=== PATIENT | female | born 1995 | race Caucasian/White ===

== ENCOUNTER 2017-04-28 16:47 | Emergency (ER) | payer MEDICAID, OTHER ==
[2017-04-28] MEDS ORDERED: Lactated Ringer's 1,000 ML IV ONE (17:32)
[2017-04-28 17:57] LABS: URINE BACTERIA RARE (<OCC); URINE BILIRUBIN NEGATIVE (NEGATIVE); URINE BLOOD NEGATIVE (NEGATIVE); URINE COLOR Yellow (YELLOW); URINE GLUCOSE (UA) NORMAL (Normal); URINE KETONE NEGATIVE (NEGATIVE); URINE LEUKOCYTE ESTERASE NEG Leu/uL (Negative); URINE PROTEIN NEGATIVE (NEGATIVE); URINE UROBILINOGEN NORMAL mg/dL (0.2-1.0); WBC URINE 1 /hpf (0-5)
--- NOTE | 2017-04-28 22:17 | OBHP ---
Datetime: 04/28/2017 17:39 IP Adm Impression: , intrauterine IP Chief Complaint Other: Abdominal tightness IP Admit Plan: Discharge home Admit Comment, IP Provider: Patient is a 22 year old at 25w3d OPAL 08/08/16 by LMP was sent to L+D by OBGYN for abdominal tightness that started last night. Patient states that pain is constant. Denies any recent trauma or intecourse. Endorses +FM, denies VB, LOF. Pt rebecca any bowel ro bladder complaints. Patient is a private of Dr Siu. Issues: Hx of delivery Cerclage placed on 03/11/17 - was previously on progesterone OB Hx: 1. EAB 2. EAB 3. 2013 at 35 weeks, male infant, no complications 4. 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 Discussed with Dr Siu, patient clear for discharge home. la bor precautions given. Patient to follow up with the office within 1 week. Nataliia Ahn DO PGY-1 agree with above pt seen and examiend with residnet cleared for d/c as per pMD has follow up 1 week FHR - Baseline A Provider: 150 Contraction Comments Provider: none Comments, ACOG Physical Exam: VSS Gen: AAOx3 CV: RRR Lungs: CTA B/L Abd: Soft, gravid Ext: No clubbing, cyanosis, edema; no calf tenderness SVE: closed/thick/high; cerclage not on tension EGA AdmitDate IP: 25.3 Vital Signs Provider: Reviewed; Within Normal Limits IP Chief Complaint: Other NICHD Variability Prov Fetus A: Moderate 6-25bpm NICHD Accel Fetus A IP Provider: 10X10 NICHD Decel Fetus A IP Provider: None Dilatation, Provider: 0
[2017-04-28 23:20] VITALS: BP 114/48; PULSE 97
== END 2017-04-28 19:18 | disposition home or self-care (01) ==
LOC: C.EROB 16:47
DX: O26.892 Other specified pregnancy related conditions, second trimester (principal); Z3A.25 25 weeks gestation of pregnancy; R10.9 Unspecified abdominal pain
CPT/HCPCS: 81001; 99283; J7120

== ENCOUNTER 2017-05-20 16:39 | Emergency (ER) | payer OTHER ==
--- NOTE | 2017-05-20 18:54 | US ---
PROCEDURE: Biophysical profile HISTORY: c/o LOF COMPARISON: None TECHNIQUE: Standard protocol for this study/examination. FINDINGS: Cephalic presentation. Posterior and fundal Placenta. No evidence of abruption or previa Gestational age derived from LMP 28 weeks 4 days. OPAL 08/08/2017. Gestational age derived from the following biometric parameters 28 weeks 5 days . Biparietal diameter 7.2 cm Head [id number] cm Abdominal circumference 24.5 cm Femur length 5.4 cm Estimated weight 1274 g Calculated cardiac rate 155 beats per min. Closed cervix measuring 3.39 cm FINDINGS: Biophysical profile score 8/8 Based on the followin. breathing movements: 2/2 2. Gross body movement: 2/2 3. tone: 2/2 4. Qualitative amniotic fluid index: 2/2 Amniotic fluid index 14.85 IMPRESSION: Biophysical profile score 8/8. Single live intrauterine gestation 28 weeks 5 days. OPAL based on biometry 08/07/2017.
[2017-05-20 22:51] VITALS: BP 110/58; PULSE 100; TEMP 98.3
== END 2017-05-20 18:43 | disposition home or self-care (01) ==
LOC: C.EROB 16:39
DX: O26.93 Pregnancy related conditions, unspecified, third trimester (principal); Z3A.28 28 weeks gestation of pregnancy

== ENCOUNTER 2017-06-30 14:20 | Emergency (ER) | payer OTHER ==
[2017-06-30] MEDS ORDERED: Lactated Ringer's 1,000 ML IV ONE (15:42)
[2017-06-30 16:15] LABS: SQUAMOUS EPITHIAL < 1 /hpf (0-5); URINE BILIRUBIN NEGATIVE (NEGATIVE); URINE BLOOD NEGATIVE (NEGATIVE); URINE CLARITY Clear (Clear); URINE COLOR Yellow (YELLOW); URINE GLUCOSE (UA) NORMAL (Normal); URINE LEUKOCYTE ESTERASE NEG Leu/uL (Negative); URINE NITRATE NEGATIVE (NEGATIVE); URINE PROTEIN NEGATIVE (NEGATIVE); URINE UROBILINOGEN NORMAL mg/dL (0.2-1.0)
[2017-06-30 21:00] VITALS: BP 127/76; PULSE 108
--- NOTE | 2017-07-01 07:56 | OBHP ---
Datetime: 06/30/2017 16:38 IP Adm Impression: , intrauterine IP Chief Complaint Other: Abdominal pain IP Admit Plan: Discharge home Admit Comment, IP Provider: Patient is a 22 year old at 34w3d OPAL 08/08/17 by LMP 11/01/16 pre sents to L+D for abdominal pressure that started last night. Patient states that the pain was so bad that she couldnt move. No inciting events. Pain radiates to her pelvic area. States that the pain slick t away but came back this morning. Pain scale was 9/10. Abdominal pressure is described as "belly tig htening" and she feels like her "cerclage is ripping". Endorses +FM, denies CTX, LOF, VB. Patient see s Dr Siu for care. [place]: Hx of delivery - currently has a cerclage placed 02/2017 at [facility] OB Hx: 1. 2012 TOP 2. 2013 at 35 weeks, male infant, 5lbs 11oz, no complications 3. 2013 or 2014 TOP 4. 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 I agree with the above as documented. OB Addendum: U/A within normal limits, patient feeling better. Pain scale 3/10. Will discharge pat ient home. labor precautions given. Prescription for Flagyl 500mg PO BID also given (presumpt mirian bacterial vaginitis). Patient to follow up with Dr Siu as scheduled previously. FHR - Baseline A Provider: 140 Contraction Comments Provider: occasional Comments, ACOG Physical Exam: VSS Gen: AAOx3 CV: RRR Lungs: CTA B/L Abd: Soft, gravid Ext: No clubbing, cyanosis, edema SSE: Cerclage intact, no bleeding, milky white vaginal discharge noted EGA AdmitDate IP: 34.3 Vital Signs Provider: Reviewed IP Chief Complaint: Other NICHD Variability Prov Fetus A: Moderate 6-25bpm NICHD Accel Fetus A IP Provider: 15X15 FHR Category Provider Fetus A: Category I NICHD Decel Fetus A IP Provider: None Dilatation, Provider: closed Datetime: 05/20/2017 17:22 Pelvic Type - PN: Adequate Extremities - PN: Normal Abdomen - PN: Normal Back - PN: Normal Breast - PN: Normal Lungs - PN: Normal Heart - PN: Normal Thyroid - PN: Normal Neurologic - PN: Normal HEENT - PN: Normal General - PN: Normal Pool Provider: Negative Nitrazine Provider: Negative Genitourinary Exam: Normal DTRs - PN: Normal
== END 2017-06-30 16:59 | disposition home or self-care (01) ==
LOC: C.EROB 14:20
DX: O26.893 Other specified pregnancy related conditions, third trimester (principal); R10.9 Unspecified abdominal pain; Z3A.34 34 weeks gestation of pregnancy
CPT/HCPCS: 81001; 99283; J7120

== ENCOUNTER 2017-07-18 16:26 | Inpatient (IN) | payer OTHER ==
--- NOTE | 2017-07-18 19:25 | OBHP ---
Datetime: 07/18/2017 17:20 IP Adm Impression: Term, intrauterine IP Chief Complaint Other: cerclage IP Adm Impression Other: threatened labor Admit Comment, IP Provider: CC: Cerclage Removal 23 year old female presents for cerclage removal. She complains of right burning foot pain on the plantar aspect of foot. She also complains of dyspnea on exertion and increased urinary frequenc y. She also complains of mild non-foul smelling vaginal discharge. ROS POSTIVES: Right Foot Pain (Plantar Surface), increased urinary frequency. NEGATIVES: Fevers, chills, chest pain, SOB, abdominal pain, nausea, vomiting, diarrhea, constipat ion, hematuria, dysuria [place]: Hx of delivery - currently has a cerclage placed 02/2017 at [facility] OB Hx: 1. 2011 Termination of 2. 2012 Normal Spontaneous vaginal deliveries at 35 weeks, male infant, 5lbs 11oz, no complication s 3. 2012 or 2013 Termination of 4. 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 No S3, No S4, RRR Lungs: CTA Abdomen: Normoactive Bowel Sounds, Non Tender. A/P: 23 year old 37 weeks and 1 day presents for cerclage removal. -Stable, afebrile -CEFM and TOCO -Cerclage Removal from Dr. Bauer (partner of Dr. Siu) Bradly Zuluaga DO, PGY-1 Agree with above, cerclage removal in the OR due to patient intolerance and stitch unable to be re moved at bed side, due to contractions discussing wiht anesthesia best plan MD Juancarlos Pelvic Type - PN: Adequate Extremities - PN: Normal Abdomen - PN: Normal Back - PN: Normal Breast - PN: Normal Lungs - PN: Normal Heart - PN: Abnormal Thyroid - PN: Normal Neurologic - PN: Normal HEENT - PN: Normal General - PN: Normal Comments, ACOG Physical Exam: cerclage stitches with cervix soft and swollen, no clearing to be able to cut and bleeding with dissection, patient uncomfortable EGA AdmitDate IP: 37.0 IP Chief Complaint: Uterine contractions; Other Genitourinary Exam: Normal DTRs - PN: Normal
[2017-07-18 19:31] LABS: BASO # 0.1 K/uL (0.0-0.2); BASO % 0.7 % (0.0-2.0); EOS # 0.4 K/uL (0.0-0.7); EOS % 3.8 % (0.0-4.0); HEMOGLOBIN 10.7 g/dL (11.0-16.0); LYMPH # 2.5 K/uL (1.0-4.3); LYMPH % 24.7 % (20.0-40.0); MEAN CORPUSCULAR HEMOGLOBIN 27.1 pg (27.0-31.0); MEAN CORPUSCULAR HGB CONC 32.6 g/dL (33.0-37.0); MEAN PLATELET VOLUME 8.7 fL (7.2-11.7); MONO # 1.1 K/uL (0.0-0.8); MONO % 10.3 % (0.0-10.0); NEUT # 6.2 K/uL (1.8-7.0); NEUT % 60.5 % (50.0-75.0); NRBC % 0.2 % (0.0-2.0); RBC 3.94 Mil/uL (3.80-5.20); RED CELL DISTRIBUTION WIDTH 13.9 % (11.5-14.5)
[2017-07-18 19:33] LABS: SQUAMOUS EPITHIAL < 1 /hpf (0-5); URINE BILIRUBIN NEGATIVE (NEGATIVE); URINE BLOOD NEGATIVE (NEGATIVE); URINE CLARITY Clear (Clear); URINE COLOR Colorless (YELLOW); URINE GLUCOSE (UA) NORMAL (Normal); URINE LEUKOCYTE ESTERASE NEG Leu/uL (Negative); URINE PROTEIN NEGATIVE (NEGATIVE); URINE UROBILINOGEN NORMAL mg/dL (0.2-1.0); WHITE BLOOD COUNT 10.3 K/uL (4.8-10.8)
[2017-07-18 19:34] LABS: MEAN CELL VOLUME 83.2 fL (81.0-99.0)
[2017-07-18] MEDS ORDERED: Bupivacaine HCl/FentaNYL Cit 100 ML EPI ONE ×2 (20:13→23:15)
[2017-07-18] MEDS ORDERED: Lidocaine 2% MPF (5 ml) Inj ONE (20:38)
[2017-07-18] MEDS ORDERED: Oxytocin 30 UNIT 30 UNITS/500 ML BAG IV SCH (22:00)
--- NOTE | 2017-07-18 22:04 | OBPN ---
Datetime: 06/30/2017 16:38 IP Progress Impression Other: augmentation for suspicious tracing and vaginal bleeding Pool Provider: Negative Membranes, Provider: Intact Contraction Comments Provider: irritability FHR - Baseline A Provider: 140 IP Progress Note Comment: spontaneous deleceration, likely positional vaginal bleeding likely from cerclage removal but cannot distinguish from other related bleeding augmentation benefit outweighs risk of sending home patient in agreement with plan pitocin augmentation when ready Vital Signs Provider: Reviewed NICHD Accel Fetus A IP Provider: 15X15 FHR Category Provider Fetus A: Category I NICHD Variability Prov Fetus A: Moderate 6-25bpm Dilatation, Provider: 3 Effacement, Provider: 50 Station, Provider: -1 NICHD Decel Fetus A IP Provider: None Datetime: 05/20/2017 17:22 Nitrazine Provider: Negative
[2017-07-19] MEDS ORDERED: Lactated Ringer's 1,000 ML IV SCH (07:30)
[2017-07-19] MEDS ORDERED: Bupivacaine HCl/FentaNYL Cit 100 ML EPI ONE ×2 (07:36→14:23)
--- NOTE | 2017-07-19 09:24 | OBPN ---
Datetime: 07/19/2017 09:18 IP Progress Impression: Normal progression of labor; Reassuring heart rate Membranes, Provider: Intact Contraction Comments Provider: q2-3 FHR - Baseline A Provider: 140 Gestation - Est Wks by US: 37w1d Presentation-Admit: Vertex IP Progress Note Comment: doing well, now scar has opened slightly, cooks catheter placed to apply m ore pressure specifically to ring of scar band 80cc/80cc uterine and vaginal balloon anticipate NICHD Accel Fetus A IP Provider: 15X15 NICHD Variability Prov Fetus A: Moderate 6-25bpm Dilatation, Provider: 4 Effacement, Provider: 80 Station, Provider: -1 NICHD Decel Fetus A IP Provider: None
[2017-07-19] MEDS ORDERED: Oxycodone/Acetaminophen 5/325 mg Tab PO PRN (19:50)
[2017-07-19] MEDS ORDERED: Tdap Vaccine 0.5 ml Vial (10-64 yrs) IM ONE (19:50)
[2017-07-19] MEDS ORDERED: Benzocaine/Menthol 20%-0.5% Topical Spray (60 ml) TOP PRN (19:50)
--- NOTE | 2017-07-19 20:04 | OBDS ---
DELIVERY PERSONNEL Delivery Doctor: Dr. Bauer Marshmallow Machine Worker: Feli Hercules RN Anesthesiologist: Dr. Oleary MATERNAL INFORMATION Delivery Anesthesia: Epidural Medications in Delivery: pitocin 20 units Estimated Blood Loss (ml): 200 Placenta Cultured: No Maternal Complications: None RN Comments: to a live baby boy with 01/22 Provider Comments: pushed well with easy descent. KELLY, left shoulder anterior no dystocia. placenta intact and spontaneous. LABOR SUMMARY EDC: 08/08/2017 00:00 No. Babies in Womb: 1 Attempted: No Labor Anesthesia: Epidural LABOR INFORMATION Reason for Induction: Not Applicable Complete Dilatation: 07/19/2017 18:25 Oxytocin: Augmentation Group B Beta Strep: Negative Steroids Given: None Reason Steroids Not Administered: Not Applicable MEMBRANES Membranes Rupture Method: Artificial Rupture of Membranes: 07/19/2017 18:24 Length of Rupture (hrs): 0.95 Amniotic Fluid Color: Clear Amniotic Fluid Amount: Moderate Amniotic Fluid Odor: Normal STAGES OF LABOR Stage 2 hrs: 0 Stage 2 min: 56 Stage 3 hrs: 0 Stage 3 min: 3 VAGINAL DELIVERY Episiotomy: None Laceration Extension: N/A Laceration Type: None Laceration Repair Note: superficial lac, 2-0 chromic figure of eight Initial Vag Sponge Count: 10` Final Vag Sponge Count: 10 Initial Vag Sharps Count: 0 Final Vag Sharps Count: 1 Sponge Count Correct: Yes; Vaginal Sweep Performed Count Comment: correct BABY A INFORMATION Infant Delivery Date/Time: 07/19/2017 19:21 Method of Delivery: Vaginal Born in Route : No : N/A Forceps: N/A SHOULDER DYSTOCIA BABY A Delivery Date/Time: 07/19/2017 19:21 PRESENTATION/POSITION BABY A Presentation: Cephalic Cephalic Presentation: Vertex Breech Presentation: N/A PLACENTA INFORMATION BABY A Placenta Delivery Time : 07/19/2017 19:24 Placenta Method of Delivery: Spontaneous Placenta Status: Delivered SCORES BABY A Heart Rate 1 min: >100 bpm Resp Effort 1 min: Good Cry Reflex Irritability 1 min: Cough or Sneeze or Pulls Away Muscle Tone 1 min: Active Motion Color 1 min: Body [place], Extremities Blue SCORE 1 MIN: 9 Heart Rate 5 min: >100 bpm Resp Effort 5 min: Good Cry Reflex Irritability 5 min: Cough or Sneeze or Pulls Away Muscle Tone 5 min: Active Motion Color 5 min: Body [place], Extremities Blue SCORE 5 MIN: 9 INFORMATION BABY A Gestational Age at Delivery: 37.4 Gestational Status: Term Infant Outcome : Liveborn Infant Condition : Stable Infant Sex: Male IDENTIFICATION/MEDS BABY A ID Band Number: [id number] ID Band Location: Left Leg; Left Arm Sensor Applied: Yes Sensor Number: [id number] Sensor Location : Cord Clamp Vitamin K Given : Aquamephyton 1 mg IM Erythromycin Given: Given Both Eyes WEIGHT/LENGTH BABY A Birthweight (gms): 3240 Infant Weight (lb): 7 Weight (oz): 2 Infant Length Inches: 19.00 Length cms: 48.3 CORD INFORMATION BABY A No. Cord Vessels: 3 Nuchal Cord : N/A Cord Blood Taken: Yes Suction: None ASSESSMENT BABY A Complications: None Physical Findings at Delivery: Within Normal Limits Infant Respirations: Appears Normal Stair Builder/ALS Called : No Infant Care By: Zbigniew MCCANN Transferred To: Remains with Mother
[2017-07-20 07:09] LABS: BASO # 0.1 K/uL (0.0-0.2); BASO % 0.6 % (0.0-2.0); EOS # 0.2 K/uL (0.0-0.7); EOS % 1.4 % (0.0-4.0); HEMOGLOBIN 9.9 g/dL (11.0-16.0); LYMPH # 2.8 K/uL (1.0-4.3); LYMPH % 16.1 % (20.0-40.0); MEAN CELL VOLUME 83.1 fL (81.0-99.0); MEAN CORPUSCULAR HEMOGLOBIN 27.5 pg (27.0-31.0); MEAN CORPUSCULAR HGB CONC 33.1 g/dL (33.0-37.0); MEAN PLATELET VOLUME 8.6 fL (7.2-11.7); MONO # 1.4 K/uL (0.0-0.8); MONO % 8.3 % (0.0-10.0); NEUT # 12.8 K/uL (1.8-7.0); NEUT % 73.6 % (50.0-75.0); RBC 3.6 Mil/uL (3.80-5.20); WHITE BLOOD COUNT 17.4 K/uL (4.8-10.8)
[2017-07-20] MEDS ORDERED: Tdap Vaccine 0.5 ml Vial (10-64 yrs) IM ONE (10:00)
[2017-07-20] MEDS: Multiple Vitamins Tab PO SCH (10:42)
--- NOTE | 2017-07-21 10:13 | OBDCSUM ---
Datetime: 06/30/2017 16:46 Discharge Instructions, Provider: Routine instructions given Contraception discussed, Prov: Yes Disch Activity Restrictions: Nothing in vagina - [place], tampons, douche
--- NOTE | 2017-07-21 10:13 | OBPPN ---
Datetime: 07/21/2017 10:11 PP Pain Prov: Within normal limits PP Nausea Prov: Denies PP Flatus Prov: Yes PP Breasts Prov: Normal PP Heart Prov: Normal PP Lungs Prov: Normal PP Abdomen/Uterus Prov: Normal PP Lochia Prov: Normal PP Vulva/Perineum Prov: Normal PP CVA Tenderness Prov: Normal PP Extremities Prov: Normal PP Impression Prov: Normal progression PP Plan Prov: Discharge PP Progress Note Prov: doing well d/c home when baby is clear
[2017-07-21] MEDS: Multiple Vitamins Tab PO SCH (10:54)
[2017-07-21] MEDS ORDERED: Influenza Vaccine 60 mcg/0.5 mL SYR (4YR UP) IM ONE (11:35)
[2017-07-21 16:52] VITALS: BP 103/64; PULSE 73; RESP 20; TEMP 97.3; O2SAT 99
== END 2017-07-21 12:50 | disposition home or self-care (01) | DRG 372 ==
LOC: C.EROB 16:26 → C.4D 19:09 → C.4M 07-19 21:13
PROVIDERS: ADMIT Obstetrics & Gynecology; ATTEND Obstetrics & Gynecology
PROC: 10907ZC Drainage of Amniotic Fluid, Therapeutic from Products of Conception, Via Natural or Artificial Opening (ICD-10-PCS; principal; 2017-07-19)
PROC: 10E0XZZ Delivery of Products of Conception, External Approach (ICD-10-PCS; 2017-07-19)
DX: O98.52 Other viral diseases complicating childbirth (principal); Z37.0 Single live birth; Z3A.37 37 weeks gestation of pregnancy